=== PATIENT | male | born 1965 | race Caucasian/White ===

== ENCOUNTER 2016-07-14 10:58 | Emergency (ER) | payer SELFPAY ==
[2016-07-14 11:00] VITALS: BP 199/103; PULSE 92; RESP 20; TEMP 97.7
--- NOTE | 2016-07-14 11:17 | PD ---
HPI Chief Complaint: Injury Time Seen by Provider: 11:05 Travel History International Travel<30 days: No Contact w/Intl Traveler<30days: No History of Present Illness HPI Patient is a 51-year-old male presenting to the chart for evaluation of left fourth finger pain. Patient states that on Wednesday he crushed his finger in a wine cooler door. He reports his pain is a 10 out of 10 and describes it as throbbing. He denies any other injury or trauma. He denies any numbness or tingling, or loss of function. PFSH Past Medical History Hypertension: Yes Social History Alcohol Use: No Tobacco Use: No Substance Use: No Allergies-Medications (Allergen,Severity, Reaction): Coded Allergies: No Known Allergies (Unverified , 07/14/16) Reported Meds & Prescriptions Reported Meds & Active Scripts Active Ibuprofen 600 Mg Tab 600 Mg PO Q6H PRN Reported Jardiance (Empagliflozin) 25 Mg Tab 25 Mg PO DAILY Lisinopril 20 Mg Tab 20 Mg PO DAILY Review of Systems Except as stated in HPI: all other systems reviewed are Neg Musculoskeletal: Positive: Edema, Pain Skin: Positive Change in Pigmentation, Positive Change in nails Physical Exam Narrative GENERAL: Well-nourished, well-developed patient. SKIN: Focused skin assessment warm/dry. HEAD: Normocephalic. EYES: No scleral icterus. No injection or drainage. NECK: Supple, trachea midline. No JVD or lymphadenopathy. CARDIOVASCULAR: Regular rate and rhythm without murmurs, gallops, or rubs. RESPIRATORY: Breath sounds equal bilaterally. No accessory muscle use. GASTROINTESTINAL: Abdomen soft, non-tender, nondistended. MUSCULOSKELETAL: No cyanosis, right fourth fingertip is edematous, nailbed is ecchymotic. Brisk capillary refill. Positive radial pulse. No obvious deformities noted. BACK: Nontender without obvious deformity. No CVA tenderness. Data Data Last Documented VS Vital Signs Date Time Temp Pulse Resp B/P Pulse Ox O2 Delivery O2 Flow Rate FiO2 07/14/16 11:00 97.7 92 20 199/103 Orders Finger ([id number]) (07/14/16 ) Tetanus/Diphtheria Tox Adult (Tetanus/Di (07/14/16 11:30) Bupivacaine Pf 0.5% Inj (Marcaine Pf 0.5 (07/14/16 11:30) MDM Medical Decision Making Medical Screen Exam Complete: Yes Emergency Medical Condition: Yes Interpretation(s) Vital Signs Date Time Temp Pulse Resp B/P Pulse Ox O2 Delivery O2 Flow Rate FiO2 07/14/16 11:00 97.7 92 20 199/103 Differential Diagnosis Subungual hematoma versus fracture versus contusion versus other Narrative Course Patient's 51-year-old male presenting to emergency for evaluation of left fourth fingertip pain and swelling secondary to crushing it in a wine cooler door. Patient is neurovascularly intact. Imaging ordered to rule out acute fracture. Nail trepidation performed with electrocautery tool to evacuate subungual hematoma. Patient's tetanus vaccine will be updated in the emergency department today. Bupivacaine 0.5% was used to perform digital block on left fourth finger fully evacuate subungual hematoma. Patient tolerated procedure well, imaging was negative for acute distal tuft fracture of the left fourth finger. Patient was encouraged to take ibuprofen as needed and as directed for pain. He is encouraged to follow-up with his primary doctor. Patient's blood pressure was markedly elevated on arrival, likely secondary to pain. Blood pressure reassessed at 159/100, patient with documented diagnosis of hypertension. He is encouraged follow-up with his primary doctor and take medications as prescribed. Diagnosis Primary Impression: Contusion Qualified Code: S60.042A - Contusion of left ring finger without damage to nail, initial encounter Additional Impression: Subungual hematoma of finger of left hand Qualified Code: S60.10XA - Subungual hematoma of finger of left hand, initial encounter Referrals: Primary Care Physician Patient Instructions: General Instructions, Subungual Hematoma (ED) Additional Instructions: Follow-up with primary doctor Take ibuprofen as needed and as directed for pain Return to emergency department for any new or worsening symptoms Med/Other Pt SpecificInfo: Prescription(s) given Scripts Ibuprofen 600 Mg [id number] Mg PO Q6H PRN (Pain/Inflammation) #40 TAB Ref 0 Prov:Iraida Barahona 07/14/16 Disposition: 01 DISCHARGE HOME Condition: Stable Iraida Barahona Jul 14, 2016 11:16
[2016-07-14] MEDS ORDERED: LISI-515 PO (11:18)
[2016-07-14] MEDS ORDERED: EMPA1TAB3 PO (11:18)
[2016-07-14] MEDS ORDERED: TETANUS/DIPHTHERIA TOXOID ADULT 0.5 ML VIAL IM ONE (11:30)
[2016-07-14] MEDS ORDERED: BUPIVACAINE HCL PF 0.5% 10 ML VIAL INFIL ONE (11:30)
--- NOTE | 2016-07-14 11:37 | RADHPO ---
EXAM DATE/TIME: 07/14/2016 11:13 [facility] COMPARISON: No previous studies available for comparison. INDICATIONS : Left hand/distal 4th digit pain & hematoma under finger nail post being closed in wine cooler door. MEDICAL HISTORY : None. SURGICAL HISTORY : None. ENCOUNTER: Initial ACUITY: 3 days PAIN SCORE: 10/10 LOCATION: Left distal 4th digit FINDINGS: Examination of the fourth digit of the left hand demonstrates no evidence of fracture or dislocation. No radiopaque foreign bodies are seen. There is deformity of the distal 5th metacarpal bone sugges ting old healed injury. The soft tissues are intact. CONCLUSION: No evidence of recent bony injury 4th digit. The distal tuft is intact. Jalen Finnegan MD on July 14, 2016 at 11:35 Board Certified Radiologist. This report was verified electronically.
[2016-07-14] MEDS ORDERED: IBUP-232 PO (11:56)
[2016-07-14 11:57] VITALS: BP 159/100
== END 2016-07-14 12:15 | disposition home or self-care (01) ==
LOC: PHEFT 10:58
DX: S60.042A Contusion of left ring finger without damage to nail, initial encounter (principal); S60.10XA Contusion of unspecified finger with damage to nail, initial encounter; Z23 Encounter for immunization; I10 Essential (primary) hypertension
CPT/HCPCS: 11740; 73140; 90471; 90714